=== PATIENT | male | born 1960 | race Hispanic/Latino ===

== ENCOUNTER 2021-10-21 04:00 | Inpatient (IN) | payer BC ==
[2021-10-21 05:01] LABS: #Eosinphils 0.4 thou/uL (0.0-0.7); #Monocytes 0.7 thou/uL (0.11-0.59); #Neutrophils 9.8 thou/uL (1.40-6.50); %Basophils 0.4 % (0.0-1.0); %Lymphocytes 15.8 % (21.0-51.0); %Neutrophils 75.9 % (42.0-75.0); Hemoglobin 8.5 g/dL (14.0-18.0); Mean Corpuscular HGB CONC 33.4 g/dL (32.0-36.0); Mean Corpuscular Hemoglobin 29.7 pg (27.0-31.0); Mean Corpuscular Volume 88.8 fL (78.0-98.0); Platelet Count 219 thou/uL (130-400); RBC Distribution Width 12.4 % (11.5-14.5); Red Blood Cell (RBC) Count 2.87 mill/uL (4.70-6.10); White Blood Cell (WBC) Count 12.9 thou/uL (4.8-10.8)
[2021-10-21 05:24] LABS: ALT (SGPT) 10 U/L (8-55); AST (SGOT) 11 U/L (5-34); Albumin 3.1 g/dL (3.4-4.8); Alkaline Phosphatase 67 U/L (40-110); Anion Gap 13 mmol/L (10-20); BUN (Urea Nitrogen) 19 mg/dL (8.4-25.7); Bilirubin, Total 0.4 mg/dL (0.2-1.2); Calc. Creatinine Clearance 0 mL/min (70-130); Calcium 8.1 mg/dL (7.8-10.44); Carbon Dioxide 23 mmol/L (23-31); Chloride 106 mmol/L (98-107); Globulin 2.1 g/dL (2.4-3.5); Glucose 250 mg/dL (80-115); Potassium 3.2 mmol/L (3.5-5.1); Protein, Total 5.2 g/dL (5.8-8.1); Sodium 139 mmol/L (136-145)
[2021-10-21] MEDS ORDERED: Ondansetron PF 4 MG/2 ML Vial IVP PRN (06:27)
[2021-10-21] MEDS ORDERED: Acetaminophen 325 MG TAB PO PRN (06:27)
[2021-10-21] MEDS ORDERED: GoLYTELY 4,000 ml Bottle PO SCH (06:30)
[2021-10-21] MEDS ORDERED: Potassium Chloride 10 MEQ in Premix Bag 1 BAG IVPB SCH (07:00)
[2021-10-21 07:45] LABS: Magnesium 1.6 mg/dL (1.6-2.6)
[2021-10-21 08:10] LABS: SARS-CoV-2 NAA Rapid Test Not Detected (NotDetected)
[2021-10-21 08:34] LABS: Hemoglobin 10.4 g/dL (14.0-18.0)
[2021-10-21] MEDS: Lactated Ringer's 1,000 ML IV SCH ×2 (09:05→17:52)
[2021-10-21 12:10] VITALS: BMI 40.3
[2021-10-21] MEDS ORDERED: Electrolyte Replacement Protocol FS PRN (13:30)
[2021-10-21] MEDS ORDERED: Potassium Chloride 20 MEQ in Premix Bag 1 BAG IVPB SCH ×2 (13:30→22:30)
[2021-10-21] MEDS ORDERED: Magnesium 2 GM/50 ML 2 GM in Premix Bag 1 BAG IVPB SCH (13:30)
[2021-10-21] MEDS ORDERED: Fentanyl 100 MCG/2 ML VIAL ONE (14:24)
[2021-10-21] MEDS ORDERED: Lidocaine 1% PF 5 ML VIAL ONE (14:52)
[2021-10-21] MEDS ORDERED: PROPOFOL 200 MG/20 ML VIAL ONE (14:52)
[2021-10-21] MEDS ORDERED: Phenylephrine 10 MG/ML VIAL ONE (14:52)
[2021-10-21 16:23] LABS: Hemoglobin 9.1 g/dL (14.0-18.0)
[2021-10-21] MEDS: Pantoprazole 40 MG VIAL IVP SCH (20:19)
[2021-10-21 21:13] LABS: Potassium 3.1 mmol/L (3.5-5.1)
[2021-10-22] MEDS: Potassium Chloride 20 MEQ in Premix Bag 1 BAG IVPB SCH ×2 (00:26→02:25)
[2021-10-22] MEDS ORDERED: hydrALAZINE 20 MG/ML VIAL SLOW IVP PRN (02:16)
[2021-10-22 03:36] LABS: #Eosinphils 0.3 thou/uL (0.0-0.7); #Lymphocytes 2.2 thou/uL (1.20-3.40); #Monocytes 0.5 thou/uL (0.11-0.59); #Neutrophils 6.5 thou/uL (1.40-6.50); %Basophils 0.5 % (0.0-1.0); %Eosinophils 3.4 % (0.0-10.0); %Lymphocytes 22.8 % (21.0-51.0); %Monocytes 4.8 % (0.0-10.0); %Neutrophils 68.5 % (42.0-75.0); Hemoglobin 8.7 g/dL (14.0-18.0); Mean Corpuscular HGB CONC 34.1 g/dL (32.0-36.0); Mean Corpuscular Volume 88.2 fL (78.0-98.0); Mean Platelet Volume 8.6 fL (7.4-10.4); Platelet Count 192 thou/uL (130-400); RBC Distribution Width 12.6 % (11.5-14.5); White Blood Cell (WBC) Count 9.5 thou/uL (4.8-10.8)
[2021-10-22 03:57] LABS: Anion Gap 11 mmol/L (10-20); BUN (Urea Nitrogen) 11 mg/dL (8.4-25.7); Calc. Creatinine Clearance 136 mL/min (70-130); Calcium 7.8 mg/dL (7.8-10.44); Carbon Dioxide 28 mmol/L (23-31); Chloride 106 mmol/L (98-107); Glucose 121 mg/dL (80-115); Magnesium 2.2 mg/dL (1.6-2.6); Potassium 3.7 mmol/L (3.5-5.1); Sodium 141 mmol/L (136-145)
[2021-10-22 05:46] LABS: Bacteria/HPF None Seen HPF (None Seen); Bilirubin Negative (Negative); Blood, Urine Negative (Negative); Clarity Clear (Clear); Glucose, Urine (Dipstick) Normal (Negative); Ketone, Urine Negative (Negative); Leukocyte Negative Leu/uL (Negative); Nitrite Negative (Negative); Protein, Urine (Dipstick) Negative (Neg-Trace); RBC/HPF 0-3 HPF (0-3); Specific Gravity, Urine 1.026 (1.002-1.036); Squamous Epithelial None Seen HPF (0-3); Urine Culture Reflex No No; Urobilinogen Normal mg/dL (Less than 2); WBC/HPF 0-3 HPF (0-3)
[2021-10-22] MEDS ORDERED: Dextrose 5% in Water 1,000 ML IV PRN (08:04)
[2021-10-22] MEDS ORDERED: Dextrose 50% Abboject 50 ML SYRINGE SLOW IVP PRN (08:04)
[2021-10-22] MEDS ORDERED: HumaLOG 300 UNITS/3 ML VIAL SC PRN (08:04)
[2021-10-22 08:40] LABS: Hemoglobin A1c 6.5 % (4.0-6.0)
[2021-10-22] MEDS: Pantoprazole 40 MG VIAL IVP SCH ×2 (09:42→20:33)
[2021-10-22] MEDS: Lactated Ringer's 1,000 ML IV SCH (11:10)
[2021-10-22] MEDS: metFORMIN 500 MG TAB PO SCH (16:45)
[2021-10-22] MEDS: Carvedilol 25 MG TAB PO SCH (20:33)
[2021-10-23] MEDS: Lactated Ringer's 1,000 ML IV SCH (00:33)
[2021-10-23 03:34] LABS: #Eosinphils 0.4 thou/uL (0.0-0.7); #Monocytes 0.5 thou/uL (0.11-0.59); #Neutrophils 5.1 thou/uL (1.40-6.50); %Basophils 0.5 % (0.0-1.0); %Eosinophils 5.4 % (0.0-10.0); %Lymphocytes 24.5 % (21.0-51.0); %Monocytes 5.8 % (0.0-10.0); %Neutrophils 63.8 % (42.0-75.0); Hemoglobin 8.1 g/dL (14.0-18.0); Mean Corpuscular Volume 88.5 fL (78.0-98.0); Mean Platelet Volume 8.1 fL (7.4-10.4); Platelet Count 169 thou/uL (130-400); RBC Distribution Width 12.5 % (11.5-14.5); Red Blood Cell (RBC) Count 2.61 mill/uL (4.70-6.10); White Blood Cell (WBC) Count 8.1 thou/uL (4.8-10.8)
[2021-10-23 03:57] LABS: Anion Gap 10 mmol/L (10-20); BUN (Urea Nitrogen) 6 mg/dL (8.4-25.7); Calc. Creatinine Clearance 159 mL/min (70-130); Calcium 8.2 mg/dL (7.8-10.44); Carbon Dioxide 27 mmol/L (23-31); Chloride 106 mmol/L (98-107); Glucose 118 mg/dL (80-115); Magnesium 1.9 mg/dL (1.6-2.6); Potassium 3.5 mmol/L (3.5-5.1); Sodium 139 mmol/L (136-145)
[2021-10-23] MEDS ORDERED: Potassium Chloride 20 MEQ TAB PO SCH (05:00)
[2021-10-23] MEDS ORDERED: Magnesium 2 GM/50 ML 2 GM in Premix Bag 1 BAG IVPB SCH (05:00)
[2021-10-23] MEDS: metFORMIN 500 MG TAB PO SCH (08:58)
[2021-10-23 08:59] VITALS: BP 124/76
[2021-10-23] MEDS: Pantoprazole 40 MG VIAL IVP SCH (08:59)
[2021-10-23] MEDS: Carvedilol 25 MG TAB PO SCH (08:59)
[2021-10-23] MEDS ORDERED: Lisinopril/Hydrochlorothiazide 20/25 mg Tablet PO SCH (09:00)
[2021-10-23] MEDS ORDERED: Atorvastatin Calcium 20 MG TAB PO SCH (09:00)
[2021-10-23] MEDS ORDERED: Amlodipine 5 MG TAB PO SCH (09:00)
[2021-10-23 10:50] VITALS: TEMP 98.7
== END 2021-10-23 11:50 | disposition home or self-care (01) | DRG 920 ==
LOC: ERS 04:00 → CCU 06:17
PROVIDERS: ADMIT Internal Medicine; ATTEND Internal Medicine
PROC: 0DB68ZX Excision of Stomach, Via Natural or Artificial Opening Endoscopic, Diagnostic (ICD-10-PCS; principal; 2021-10-21)
PROC: 0W3P8ZZ Control Bleeding in Gastrointestinal Tract, Via Natural or Artificial Opening Endoscopic (ICD-10-PCS; 2021-10-21)
PROC: 30233N1 Transfusion of Nonautologous Red Blood Cells into Peripheral Vein, Percutaneous Approach (ICD-10-PCS; 2021-10-21)
DX: K91.840 Postprocedural hemorrhage of a digestive system organ or structure following a digestive system procedure (principal); D62 Acute posthemorrhagic anemia; K63.3 Ulcer of intestine; I10 Essential (primary) hypertension; E87.6 Hypokalemia; D72.829 Elevated white blood cell count, unspecified; E78.5 Hyperlipidemia, unspecified; K64.4 Residual hemorrhoidal skin tags; E66.01 Morbid (severe) obesity due to excess calories; E11.9 Type 2 diabetes mellitus without complications; K57.30 Diverticulosis of large intestine without perforation or abscess without bleeding; Y83.8 Other surgical procedures as the cause of abnormal reaction of the patient, or of later complication, without mention of misadventure at the time of the procedure; Z20.822 Contact with and (suspected) exposure to COVID-19; K31.9 Disease of stomach and duodenum, unspecified; Z86.010 Personal history of colon polyps; Z87.891 Personal history of nicotine dependence; Z90.49 Acquired absence of other specified parts of digestive tract; Z79.84 Long term (current) use of oral hypoglycemic drugs; Z79.899 Other long term (current) drug therapy; Z79.82 Long term (current) use of aspirin; Z68.39 Body mass index [BMI] 39.0-39.9, adult
CPT/HCPCS: 36415; 36416; 36430; 74177; 80048; 80053; 81001; 83036; 83735; 85025; 86850; 86900; 86901; 88305; C1776; C9113; J2370; J2704; J3010; J3475; J3480; J7120; P9016; U0002

== ENCOUNTER 2024-01-03 20:38 | Emergency (ER) | payer BC ==
[2024-01-03 21:30] LABS: #Basophils 0.1 thou/uL (0.0-0.2); #Eosinphils 0.6 thou/uL (0.0-0.7); #Monocytes 0.7 thou/uL (0.11-0.59); #Neutrophils 5.9 thou/uL (1.40-6.50); %Basophils 0.6 % (0.0-1.0); %Eosinophils 5.7 % (0.0-10.0); %Lymphocytes 25.8 % (21.0-51.0); %Monocytes 6.9 % (0.0-10.0); %Neutrophils 60.5 % (42.0-75.0); Hematocrit 40.2 % (42.0-52.0); Mean Corpuscular HGB CONC 32.3 g/dL (32.0-36.0); Mean Corpuscular Hemoglobin 27.8 pg (27.0-31.0); Mean Corpuscular Volume 85.9 fl (78.0-98.0); Mean Platelet Volume 10.6 fL (7.4-10.4); Platelet Count 257 10x3/uL (130-400); RBC Distribution Width 14.4 % (11.5-14.5); Red Blood Cell (RBC) Count 4.68 mill/uL (4.70-6.10); White Blood Cell (WBC) Count 9.8 10x3/uL (4.8-10.8)
[2024-01-03 21:51] LABS: ALT (SGPT) 15 U/L (8-55); AST (SGOT) 14 U/L (5-34); Albumin 4.5 g/dL (3.4-4.8); Alkaline Phosphatase 109 U/L (40-110); Anion Gap 15 mmol/L (10-20); BUN (Urea Nitrogen) 27 mg/dL (8.4-25.7); Bilirubin, Total 0.5 mg/dL (0.2-1.2); Calc. Creatinine Clearance 0 mL/min (70-130); Calcium 9.9 mg/dL (7.8-10.44); Carbon Dioxide 22 mmol/L (23-31); Chloride 105 mmol/L (98-107); Estimated GFR 83; Globulin 2.4 g/dL (2.4-3.5); Glucose 96 mg/dL (80-115); Potassium 3.3 mmol/L (3.5-5.1); Protein, Total 6.9 g/dL (5.8-8.1); Sodium 139 mmol/L (136-145)
== END 2024-01-03 23:20 | disposition left against medical advice (07) ==
LOC: ERS 20:38
DX: Z53.21 Procedure and treatment not carried out due to patient leaving prior to being seen by health care provider (principal)
CPT/HCPCS: 36415; 80053; 85025; 86850; 86900; 86901